=== PATIENT | male | born 1945 | race Caucasian/White ===

== ENCOUNTER → 2021-04-03 | Outpatient (CLI) | payer MEDICARE ==
[2021-04-03 16:49] LABS: African American GFR (CKD) 96.5 (60.0-200.0); Anion Gap 13.4 mmol/L (10.00-18.00); Blood Urea Nitrogen 15.9 mg/dL (9.0-27.0); Carbon Dioxide 26.6 mmol/L (20.0-27.5); Non-African American GFR(CKD) 83.3 (60.0-200.0); Potassium 4.3 mmol/L (3.5-5.5)
[2021-04-03 16:56] LABS: HCT 48.1 % (39.6-50.0); HGB 15.3 g/dL (13.0-17.0); MCH 28.9 pg (27.0-32.0); MCHC 31.8 g/dL (32.0-37.0); MCV 90.9 fL (80.0-97.0); Mean Platelet Volume 10.5 fL (9.5-12.2); NRBC Per 100 WBC 0 /100 WBCS (0.0-0.0); Platelet Count 285 X 10*3/uL (140-440); RBC 5.29 X 10*6/uL (4.40-5.60); RDW 16.6 % (11.5-14.5); WBC 7.05 X 10*3/uL (4.50-10.00)
[2021-04-04 12:59] LABS: Coronavirus SARS CoV-2 Not Detected (Not Detected)
== END ==
LOC: LABPAT 10:29
PROVIDERS: ATTEND Internal Medicine Cardiovascular Disease
DX: Z01.812 Encounter for preprocedural laboratory examination (principal); U07.1 COVID-19; I48.11 Longstanding persistent atrial fibrillation
CPT/HCPCS: 80051; 82565; 84520; 85027; U0003

== ENCOUNTER 2021-04-07 06:30 | Day surgery (SDC) | payer MEDICARE ==
[2021-04-05 15:08] VITALS: BMI 42.3
[~2021-04-07 06:30] MED LIST: LACTATED RINGERS 1,000 ML IV SCH; SODIUM CHLORIDE 0.9% 1,000 ML IV SCH
[2021-04-07] MEDS ORDERED: SODIUM CHLORIDE 0.9% 500 ML 500 ML IV ONE (06:44)
[2021-04-07 07:01] VITALS: TEMP 98.1
[2021-04-07] MEDS ORDERED: PROPOFOL 10 MG/ML 20 ML VIAL IV ONE (07:30)
[2021-04-07] MEDS ORDERED: BENZOCAINE SPRAY 1 CAN MUCOUS MEM ONE (07:32)
[2021-04-07] MEDS ORDERED: SODIUM CHLORIDE 0.9% 1,000 ML IV SCH (08:00)
[2021-04-07 09:02] VITALS: RESP 16
[2021-04-07] MEDS ORDERED: ACETAMINOPHEN TAB 500 MG TAB PO ONE (09:03)
[2021-04-07 10:11] VITALS: BP 144/74; PULSE 772
--- NOTE | 2021-04-07 10:44 | LTR ---
April 07, 2021 To: Dr. Frederick Re: Christian Enamorado (45) Dear Chadd, I performed cardioversion on Christian Enamorado. A detailed report is enclosed for your records. I am happy to report you that the patient converted to normal sinus rhythm after receiving 150 joules of synchronized DC current. I am going to continue him on the anticoagulant. Thank you for giving me the privilege of participating in the care of this pleasant gentleman. Sincerely, Vivek Valdovinos M.D. NANCY / EZE: [id number] /
--- NOTE | 2021-04-07 12:29 | ECHOT ---
TRANSESOPHAGEAL ECHOCARDIOGRAM INDICATION: Persistent atrial fibrillation. FIRST PROCEDURE: Transesophageal echocardiogram. INDICATION: Persistent atrial fibrillation to rule out intracardiac thrombus. PROCEDURE NOTE: After obtaining informed consent, transesophageal echocardiogram was performed in left lateral position using an Omniplane probe. Local and IV sedation were obtained by the laboratory secretary. Color Doppler, 2D and spectral analysis performed. Patient tolerated the procedure without any obvious immediate complications. FINDINGS: 1. There is no intracardiac thrombus within the left atrial appendage, left atrium, right atrium, right ventricle or left ventricle. 2. Left atrium appears severely enlarged. 3. Right atrium and right ventricle appear moderately enlarged. 4. Left ventricle has normal size, shows diffuse global hypokinesis with mild LV systolic dysfunction with an ejection fraction of 40% to 45%. There is mild aortic regurgitation. Aortic root appears within normal limits. There is moderate to severe mitral regurgitation noted. Moderate tricuspid regurgitation noted. There is no evidence of zwtf-qt-bauyg shunt by color-flow Doppler or xcyye-gt-cdhl shunt by agitated saline contrast study. CONCLUSIONS: 1. No intracardiac thrombus. 2. Moderate to severe mitral regurgitation. 3. Mild aortic regurgitation. 4. Moderate tricuspid regurgitation. 5. Mild LV systolic dysfunction. PLAN: Patient will proceed with cardioversion. CARDIOVERSION NOTE: INDICATION: Persistent atrial fibrillation. Patient underwent electrical cardioversion using 100 and 150 joules of synchronized DC current. Patient converted after the second shock. He was sedated by the laboratory secretary. He was adequately anticoagulated with Eliquis and a MYRIAM was performed to rule out intracardiac thrombus. MMODL / IJN: [id number] /
== END 2021-04-07 10:02 | disposition home or self-care (01) ==
LOC: CATHCVL 06:30
PROVIDERS: ATTEND Internal Medicine Cardiovascular Disease
DX: I48.19 Other persistent atrial fibrillation (principal); I08.3 Combined rheumatic disorders of mitral, aortic and tricuspid valves; I10 Essential (primary) hypertension; Z86.16 Personal history of COVID-19; Z79.899 Other long term (current) drug therapy; Z79.01 Long term (current) use of anticoagulants; Z88.2 Allergy status to sulfonamides; Z98.890 Other specified postprocedural states; Z82.49 Family history of ischemic heart disease and other diseases of the circulatory system
CPT/HCPCS: 93312; 93320; 93325; 92960; J2704

== ENCOUNTER → 2021-06-02 | Outpatient (CLI) | payer MEDICARE ==
[2021-06-02 23:31] LABS: HCT 48.3 % (39.6-50.0); HGB 15.8 g/dL (13.0-17.0); MCH 30.6 pg (27.0-32.0); MCHC 32.7 g/dL (32.0-37.0); MCV 93.4 fL (80.0-97.0); Mean Platelet Volume 9.7 fL (9.5-12.2); NRBC Per 100 WBC 0 /100 WBCS (0.0-0.0); Platelet Count 264 X 10*3/uL (140-440); RBC 5.17 X 10*6/uL (4.40-5.60); RDW 16.3 % (11.5-14.5); WBC 7.09 X 10*3/uL (4.50-10.00)
[2021-06-02 23:36] LABS: Anion Gap 13.5 mmol/L (10.00-18.00); Blood Urea Nitrogen 21.7 mg/dL (9.0-27.0); Carbon Dioxide 25.2 mmol/L (20.0-27.5); Non-African American GFR(CKD) 73.3 (60.0-200.0); Potassium 4.8 mmol/L (3.5-5.5)
== END | disposition home or self-care (01) ==
LOC: LABPAT 14:30
PROVIDERS: ATTEND Internal Medicine Cardiovascular Disease
DX: Z01.812 Encounter for preprocedural laboratory examination (principal); I48.11 Longstanding persistent atrial fibrillation
CPT/HCPCS: 36415; 80051; 82565; 84520; 85027

== ENCOUNTER 2021-06-07 10:00 | Day surgery (SDC) | payer MEDICARE ==
[2021-06-04 10:05] VITALS: BMI 42.3
== END 2021-06-07 11:30 | disposition home or self-care (01) ==
LOC: CATHCVL 10:00
PROVIDERS: ATTEND Internal Medicine Cardiovascular Disease
DX: Z53.8 Procedure and treatment not carried out for other reasons (principal); I48.19 Other persistent atrial fibrillation; I10 Essential (primary) hypertension; Z79.899 Other long term (current) drug therapy

== ENCOUNTER → 2021-07-09 | Day surgery (SDC) | payer MEDICARE ==
[2021-07-08 14:46] VITALS: BMI 42.3
[2021-07-09 07:00] VITALS: BP 180/84; PULSE 54; RESP 18; TEMP 98.4
== END ==
LOC: CATHCVL 06:03
PROVIDERS: ATTEND Internal Medicine Cardiovascular Disease
DX: I48.19 Other persistent atrial fibrillation (principal); I10 Essential (primary) hypertension; Z53.8 Procedure and treatment not carried out for other reasons; Z88.2 Allergy status to sulfonamides; Z79.01 Long term (current) use of anticoagulants; Z79.02 Long term (current) use of antithrombotics/antiplatelets; Z79.899 Other long term (current) drug therapy

== ENCOUNTER → 2021-09-14 | Outpatient (CLI) | payer MEDICARE | END | disposition home or self-care (01) | LOC: LABWHC1 10:46 | PROVIDERS: ATTEND Internal Medicine Cardiovascular Disease | DX: I48.19 Other persistent atrial fibrillation (principal) | CPT/HCPCS: 36415; 84443; 84450; 84460 ==

== ENCOUNTER 2022-02-09 05:41 | Day surgery (SDC) | payer MEDICARE ==
[2022-02-04 15:40] VITALS: BMI 42.0
[~2022-02-09 05:41] MED LIST changes: -LACTATED RINGERS 1,000 ML IV SCH; -SODIUM CHLORIDE 0.9% 1,000 ML IV SCH; +TETRACAINE 0.5% OPHTH (PF) DROPS 4 ML BTL OP PRN
[2022-02-09] MEDS ORDERED: TIMOLOL 0.5% OPHTH DROPS 5 ML BTL OP PRN (06:00)
[2022-02-09] MEDS ORDERED: MOXIFLOXACIN HCL 0.5% DROPS 3 ML BTL OP PRN (06:00)
[2022-02-09] MEDS: CYCLOPENTOLATE 1% OPHTH SOLN 2 ML BTL OP PRN ×3 (06:36→06:53)
[2022-02-09] MEDS: PHENYLEPHRINE 2.5% OPHTH DRP 2ML OP PRN ×3 (06:38→06:56)
[2022-02-09] MEDS ORDERED: LACTATED RINGERS 1,000 ML IV ONE (06:44)
[2022-02-09 06:54] VITALS: RESP 18; TEMP 97.8
[2022-02-09] MEDS ORDERED: fentaNYL (PF) 50 MCG/ML 2 ML AMP ONE (07:05)
[2022-02-09] MEDS ORDERED: MIDAZOLAM 2 MG/2 ML VIAL ONE (07:05)
[2022-02-09] MEDS ORDERED: LACTATED RINGERS 1,000 ML IV SCH (07:07)
[2022-02-09] MEDS ORDERED: HYALURONATE SODIUM INTRAOCULAR 1 EACH SYRINGE (12MG/ML) INTRAOCULA ONE (07:23)
[2022-02-09] MEDS ORDERED: BALANCED SALT IRRIG SOLN COMB2 15 ML IRRIG.SOLN INTRAOCULA ONE (07:24)
[2022-02-09] MEDS ORDERED: LIDOCAINE 1% (PF) 10MG/ML VIAL SQ ONE (07:24)
[2022-02-09] MEDS ORDERED: EPINEPHrine (PF) 0.3 ML in BALANCED SALT IRRIG SOLN COMB2 500 ML IRRIGATION ONE (07:25)
--- NOTE | 2022-02-09 07:43 | P.OP ---
Date of Procedure: 02/09/22 Preoperative Diagnosis: NS & CS Postoperative Diagnosis: same Procedure(s) Performed: PIOL, OS Implants: MX60E 18.00 Anesthesia: MAC Surgeon: Jake Crowley Pathology: none sent Condition: stable Disposition: same day Indications for Procedure: blurry vision Operative Findings: no complicationsx
[2022-02-09] MEDS ORDERED: DUOVISC KIT (GREEN BOX) INTRAOCULA ONE (08:04)
[2022-02-09 08:05] VITALS: BP 166/73; PULSE 50
--- NOTE | 2022-02-10 01:24 | OP ---
OPERATIVE REPORT PREOPERATIVE DIAGNOSES: Nuclear sclerosis, cortical sclerosis. POSTOPERATIVE DIAGNOSES: Nuclear sclerosis, cortical sclerosis. OPERATION: Phacoemulsification of cataract and interocular lens implant, left eye. ESTIMATED BLOOD LOSS: Zero. SPECIMEN TAKEN: None. NARRATIVE: After obtaining the appropriate consent, the patient was brought to the operating room where the patient was placed under cardiac monitoring and prepped and draped in the usual sterile manner. At the 5 o'clock position, a 15-degree super sharp blade was used to create a paracentesis followed by instillation of 1% Xylocaine MPF 50:50 mix with BSS into the anterior chamber. This was followed by Duovisc viscoelastic to stabilize the anterior chamber. At the 3 o'clock position a self-sealing corneal flap incision was created using 2.8 mm dasia keratome. A cystotome was used to initiate a continuous tear capsulorrhexis which was completed with the Utrata forceps. A Binkhorst cannula was used to hydrodissect the lens nucleus followed by hydrodelineation. Phacoemulsification of the lens was performed utilizing phacochop in 36.94 seconds at 19% power. The remaining cortical material was removed using the irrigation aspiration mode followed by additional 1% Xylocaine MPF into the anterior chamber followed by viscoelastic to stabilize the capsular bag. A [employer] MX60E 18.0 diopters posterior chamber lens was placed into the capsular bag without difficulty. The remaining viscoelastic material was removed from the anterior chamber with the irrigation/aspiration. Balanced salt solution was used to normalize the intraocular pressure. The incision was checked for watertight integrity. The patient then received 2 drops of 0.5% timolol followed by 2 drops Vigamox, was lightly patched and shielded in the usual manner. There were no complications from the procedure. The patient tolerated the procedure well and was returned to recovery in good condition. MMODL / IJN: [id number] /
== END 2022-02-09 08:27 | disposition home or self-care (01) ==
LOC: OR 05:41
PROVIDERS: ATTEND Ophthalmology
DX: H25.812 Combined forms of age-related cataract, left eye (principal); Z96.1 Presence of intraocular lens; I10 Essential (primary) hypertension; E78.00 Pure hypercholesterolemia, unspecified; I48.91 Unspecified atrial fibrillation; M19.90 Unspecified osteoarthritis, unspecified site; I49.9 Cardiac arrhythmia, unspecified; Z88.2 Allergy status to sulfonamides; Z79.01 Long term (current) use of anticoagulants; Z79.899 Other long term (current) drug therapy
CPT/HCPCS: 66984; C1780; J2250; J0171; J3010; J2001